=== PATIENT | female | born 1980 | race Two or more races ===

== ENCOUNTER 2023-02-09 16:51 | Emergency (ER) | payer OTHER ==
[~2023-02-09] VITALS: Ht 157.5 cm; Wt 75.0 kg
[2023-02-09 17:45] VITALS: BP 136/81
[2023-02-09] MEDS ORDERED: IBUPROFEN 600 MG TABLET PO ONE (18:30)
[2023-02-09] MEDS ORDERED: IBUP-1492 PO (18:32)
== END 2023-02-09 18:36 | disposition home or self-care (01) ==
LOC: EMS 16:54
DX: M25.569 Pain in unspecified knee (principal); Z85.9 Personal history of malignant neoplasm, unspecified
CPT/HCPCS: 99282; Z7502; Z7610